=== PATIENT | male | born 1980 | race Caucasian/White ===

== ENCOUNTER 2024-01-12 06:15 | Inpatient (IN) | payer MEDICAID ==
[~2024-01-12] VITALS: Ht 172.7 cm; Wt 81.9 kg
[2024-01-12 13:32] VITALS: BP 120/81; PULSE 80; RESP 16; TEMP 97.9; O2SAT 99
[2024-01-12] MEDS ORDERED: acetaminophen 325mg tablet PO PRN (13:50)
[2024-01-12] MEDS ORDERED: mag hydrox/Alum hydrox/simeth 30ml oral suspension PO PRN (13:50)
[2024-01-12] MEDS ORDERED: loperamide 2mg capsule PO PRN (13:50)
[2024-01-12] MEDS: nicotine 21mg patch - 24 hr TD SCH (14:26)
[2024-01-12] MEDS ORDERED: BUPR-564 PO (14:39)
[2024-01-12] MEDS ORDERED: ZIPR40CA14 PO (14:39)
[2024-01-12] MEDS ORDERED: AMIT-1 PO (14:39)
[2024-01-12] MEDS ORDERED: CETI10TA14 PO (14:39)
[2024-01-12] MEDS ORDERED: LUMA42CA PO (14:39)
[2024-01-12] MEDS ORDERED: FLUO-331 PO (14:39)
[2024-01-12] MEDS ORDERED: QUET300T20 PO (14:39)
[2024-01-12] MEDS ORDERED: GABA300C PO (14:39)
[2024-01-12] MEDS ORDERED: CLON-570 PO (14:39)
[2024-01-12] MEDS ORDERED: LISI10TA27 PO (14:39)
[2024-01-12] MEDS ORDERED: CARB-322 PO (14:39)
[2024-01-12] MEDS ORDERED: SODI1TAB2 PO (14:39)
--- NOTE | 2024-01-12 14:56 | NUR ---
Pt admitted to center for behavioral health today on 5150 for DTS from [facility] today at 1335. 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 No forward thinking, impulsive and risky behaviors. Unable to safety plan. Pt has history of schizophrenia, hyponatremia, HTN, normocytic anemia, migraines.
[2024-01-12 15:00] VITALS: RESP 16; O2SAT 99
[2024-01-12 19:02] VITALS: BP 137/101; PULSE 78; RESP 16; TEMP 97.5; O2SAT 99
[2024-01-12] MEDS: clonazePAM 1mg tablet PO SCH (21:35)
[2024-01-12] MEDS: acetaminophen 325mg tablet PO PRN (21:36)
[2024-01-12] MEDS: cetirizine 10mg tablet PO SCH (21:36)
[2024-01-12] MEDS: ziprasidone 20mg capsule PO SCH (21:37)
[2024-01-12] MEDS: quetiapine 100mg tablet PO SCH (21:39)
[2024-01-12] MEDS: oxcarbazepine 150mg tablet PO SCH (21:39)
--- NOTE | 2024-01-13 00:29 | NUR ---
Nursing Progress Note: Problems: Depression, suicidal thoughts, anxiety Interventions: One to one with the patient and completed the nursing physical assessment. Tylenol given for complaints of chronic back pain. Medication administration and assessment. Assessed for severity of depressive symptoms and self harm risk. He is on q 15 minute safety checks and q 1 hour RN rounding. Reviewed the unit routine with him for the evening shifts. Response: The patient has been up on the unit and has pleasant and cooperative. He stated his mood was "somber, depressed" He stated, "I really really want to be in a 24/7 mental health facility or a prison. "I'm not ssate to be by myself. My meds need to be under lock and simon" He stated that he is suicidal but feels safe here and added, "When I'm in a mental health facility I feel like I'm in my own community" When asked if he has ever been conserved before he replied, "No but eventually I will be and my son will be my conservator" He reported that he felt anxious and irritable. He reports chronic back pain. Plan: Continue plan of care.
[2024-01-13 07:00] VITALS: RESP 14; O2SAT 97
[2024-01-13 07:30] VITALS: BP 126/97; PULSE 95; RESP 14; O2SAT 97
[2024-01-13] MEDS: lisinopril 10 MG tablet PO SCH (07:57)
[2024-01-13] MEDS: BUPROPION HCL 150MG XL 24 HR 150 MG TAB PO SCH (07:58)
[2024-01-13] MEDS: FLUoxetine 10mg capsule PO SCH (07:58)
[2024-01-13 08:00] VITALS: TEMP 97.5
[2024-01-13 11:33] LABS: BASOPHILS # (AUTO) 0.1 X10'3 (0-0.2); BASOPHILS % (AUTO) 0.9 % (0-1); EOSINOPHILS # (AUTO) 0.1 X10'3 (0-0.9); HEMATOCRIT 40.1 % (42.0-52.0); LYMPHOCYTES # (AUTO) 2.2 X10'3 (1.1-4.8); LYMPHOCYTES % (AUTO) 36.4 % (21-51); MEAN CORPUSCULAR HEMOGLOBIN 32.4 PG (27.0-31.0); MEAN CORPUSCULAR HGB CONC 34.8 g/dL (33.0-36.5); MEAN CORPUSCULAR VOLUME 93.1 FL (78-98); MEAN PLATELET VOLUME 9.6 FL (7.4-10.4); MONOCYTES # (AUTO) 0.8 X10'3 (0-0.9); MONOCYTES % (AUTO) 12.5 % (2-12); NEUTROPHILS % (AUTO) 49.2 % (42-75); PLATELET COUNT 209 X10'3 (140-440); RED BLOOD COUNT 4.31 X10'6 (4.70-6.10); RED CELL DISTRIBUTION WIDTH 13.9 % (11.5-14.5); WHITE BLOOD COUNT 6.1 X10'3 (4.5-11.0)
[2024-01-13 12:05] LABS: ALANINE AMINOTRANSFERASE 70 U/L (12-78); ALKALINE PHOSPHATASE 75 IU/L (46-116); ANION GAP 10 (8-16); ASPARTATE AMINO TRANSFERASE 17 U/L (10-37); BILIRUBIN,TOTAL 0.3 MG/DL (0.1-1.0); BLOOD UREA NITROGEN 17 MG/DL (7-18); BUN/CREATININE RATIO 21.3 (10.0-20.0); CALCIUM 9.3 MG/DL (8.5-10.1); CARBAMAZEPINE (TEGRETOL) 3.7 UG/ML (4.0-12.0); CHLORIDE 94 MMOL/L (99-107); CHOL/HDL RATIO 5.4 (0.00-4.99); CHOLESTEROL 228 MG/DL (0-200); GLUCOSE 86 MG/DL (70-104); HDL CHOLESTEROL 42 MG/DL (35-60); LDL CHOLESTEROL 142 MG/DL (50-100); POTASSIUM 4.1 MMOL/L (3.5-5.1); SODIUM 129 MMOL/L (135-145); THYROID STIMULATING HORMONE 1.57 ulU/ml (0.34-4.50); TOTAL CARBON DIOXIDE 25.3 MMOL/L (24-32); TOTAL PROTEIN 7.9 G/DL (6.4-8.2); TRIGLYCERIDES 243 MG/DL (20-135); eCRCL 116 ML/MIN; eGFR > 90 ML/MIN
[2024-01-13 12:08] LABS: BETA HCG,QUANTITATIVE < 1.0 mIU/ml
[2024-01-13 13:16] LABS: HIV ANTIBODY 1&2 RAPID NON-REACTIVE (Neg)
--- NOTE | 2024-01-13 15:48 | NUR ---
Notified MD Echeverria of CMP and toxicology results from today, received verbal orders or Simvastatin 20mg PO daily. Noted and entered.
--- NOTE | 2024-01-13 16:39 | NUR ---
Nursing Progress Note: Zhang Problems: SI, depression, anxiety Interventions: Performed 1:1 nursing assessment, provided medication administration, education, monitoring, active listening/therapeutic communication, Q15 minute rounding. Maintained a safe and supportive environment. Response: Patient is calm and cooperative this shift, he remains compliant with scheduled medication and 1:1 assessment. He reports that he wishes to be , he listed ways he would plan to harm himself, "jump into traffic, OD, go out into the ocean, I'd use the toilet seat to stab into my neck if there was one here." He stated that he has no hope. No self harm behavior to note at this time, it appears that patient wishes to be conserved. He explained, "I want to be in a facility because I don't trust myself." He reported some paranoia related to people dealing drugs in [place] knowing him since he's from [place]. He denies HI and AVH at this time, though he does report severe depression. Patient is active on the unit and appears to interact appropriately with staff/peers. He attended snack/meals in the community room today. Plan: Continue to adjust/titrate medication as necessary and stabilize patient for safe discharge. Addendum: 01/13/24 at 1707 by Rhys Beck RN RN reviewed and agrees with [facility] documentation.
[2024-01-13 19:18] VITALS: BP 126/87; PULSE 87; RESP 20; TEMP 97.8; O2SAT 96
[2024-01-13] MEDS: gabapentin 300mg capsule PO SCH (20:11)
[2024-01-13] MEDS: sodium chloride 1gm tablet PO SCH (20:11)
[2024-01-13] MEDS: clonazePAM 1mg tablet PO PRN (20:11)
[2024-01-13] MEDS: ibuprofen 200mg tablet PO PRN (20:11)
[2024-01-13] MEDS: carBAMazepine Ext. Release 200 MG TAB.ER.12H PO SCH (20:12)
--- NOTE | 2024-01-13 22:38 | NUR ---
Nursing Progress Note: Problems: Depression, suicidal thoughts, anxiety, hyponatremia with NA of 129, Chronic back pain Interventions: One to one with the patient and completed the nursing physical assessment. Tylenol given for complaints of chronic back pain. Medication administration and assessment. Assessed for severity of depressive symptoms and self harm risk. He is on q 15 minute safety checks and q 1 hour RN rounding. Reviewed the unit routine with him for the evening shifts. The patient is on a 900 cc water restriction. Provider made aware that patient preferred Motrin for pain relief and orders received. Response: The patient was up on the unit and in the general patient areas for the majority of the evening. He presented as pleasant and well groomed. When asked how his day went he replied "I woke up pissed at the aids social worker because she told me I had to go back to [facility]" He stated that he wanted to be assigned to a different aids social worker. He stated that he wants to stay in [facility] and get into the housing that his doctor is arranging for him. He verbalized understanding and was compliant with the fluid restriction. He denied medication side effects. He complained of chronic back pain 08/31 and requested/received Motrin. He continues to endorse suicidal thoughts to overdose, step in front of traffic or go into the ocean. He has not had any self injurious behaviors reported or observed. Psychotic symptoms were denied. Plan: Continue plan of care.
[2024-01-14 07:00] VITALS: RESP 12; O2SAT 98
[2024-01-14] MEDS: simvastatin 20mg tablet PO SCH (07:58)
[2024-01-14 08:00] VITALS: BP 122/90; PULSE 72; RESP 12; TEMP 97.1; O2SAT 98
[2024-01-14] MEDS: Lumateperone Tosylate (Caplyta) 42MG CAP PO SCH (08:00)
--- NOTE | 2024-01-14 14:20 | NUR ---
CASE MANAGEMENT Pt has an interview with [employer] today. Eveline Schmitt, BINDERY MACHINE TENDER
--- NOTE | 2024-01-14 17:06 | NUR ---
Nursing Progress Note: Zhang Problems: SI, depression, anxiety, anger issues Interventions: Performed 1:1 nursing assessment, provided medication administration, education, monitoring, active listening/therapeutic communication, Q15 minute rounding. Maintained a safe and supportive environment. Response: Received Pt in bed sleeping w/o distress at shift change. Pt cooperative with vitals and woke for the day and watched TV in Rec. room. Pt pleasant in conversation and talked about wanting to change his medical to [facility] and that he may be getting into the [facility]. Pt took AM meds after reviewing them with him. In mid morning he stated he felt "high" from the medications. He met with Dr Echeverria and he made some changes which are noted in the EMAR. Pt states he doesn't want to go back to drugs "but if I was around them I'd use em". Pt denies HI and AVH's. He reports passive SI with no plan or intent at this time. Pt attended groups today. He became agitated and hit the wall in the afternoon and was able to de-escalate with verbal intervention and taking care of a request he had. Pt later apologized and made a phone call and walked the hallway. Plan: Continue to adjust/titrate medication as necessary and stabilize patient for safe discharge.
[2024-01-14 19:14] VITALS: RESP 16; O2SAT 100
[2024-01-14 19:16] VITALS: BP 134/85; PULSE 76; RESP 16; TEMP 97; O2SAT 100
[2024-01-14] MEDS: carBAMazepine 100mg chewable tablet PO SCH (20:03)
[2024-01-14] MEDS: ziprasidone 20mg capsule PO SCH (20:03)
--- NOTE | 2024-01-15 00:03 | NUR ---
Nursing Progress Note: Problems: Depression, suicidal thoughts, anxiety, hyponatremia with NA of 129, Chronic back pain, right hand pain/swelling Interventions: One to one with the patient and completed the nursing physical assessment. Medication administration and assessment. Assessed for severity of depressive symptoms and self harm risk. He is on q 15 minute safety checks and q 1 hour RN rounding. Reviewed labs and no new labs for today. Right hand examined and the Hospitalist, Dr. Randle was made aware of assessment. Order received for an X ray of the right hand. Tylenol and Motrin given for complaints of mild discomfort. Klonopin given for complaints of anxiety. Response: The patient has been up on the unit and has been more social with peers. He has not had any outbursts. He apologized for his behavior earlier in the day but then added that he was in a psychiatric hospital and could not be expected to act normal. He did complain of mild right hand pain and he did have some minor swelling of the outer hand. He is aware that an x ray will be done in the am. He reported his anxiety was an 8 or 9 out of 10. He continues to endorse suicidal thoughts but states that those thoughts are less today. Psychotic symptoms were denied. He reports sleeping and eating well. He appears well groomed. Plan: Continue plan of care.
[2024-01-15 07:30] VITALS: BP 123/83; PULSE 82; RESP 18; TEMP 97.3; O2SAT 100
[2024-01-15 08:13] LABS: HBSAG SCREEN Negative (Negative); HEP B CORE AB, IGM Negative (Negative); HEP B CORE AB, TOT Negative (Negative); HEPATITIS C VIRUS ANTIBODY Non Reactive (Non Reactive)
--- NOTE | 2024-01-15 09:59 | NUR ---
Initial: Pt admit for suicide attempt, substance abuse, and schizoaffective disorder per EMR. Pt continues on a regular diet with fluctuating intake of ~78% x 8 meals which met ~97% of estimated kcal and 100% of estimated protein needs. LBM on 01/13 and receiving routine bowel care per EMR. Will continue to monitor and make recommendations as appropriate. Recommendations: 1.Continue mechanical soft regular diet 2.[place] food preferences per diet order: Oatmeal with fruit , no tomato sauce 3.Routine bowel care 4.Weekly scaled wts Addendum: 01/15/24 at [address] Amended: Links added.
--- NOTE | 2024-01-15 11:25 | NUR ---
Pt complaining of feeling like he is over medicated and feeling like he just smoked marijuana. Provider was notified and Tegretol was DC'd.
--- NOTE | 2024-01-15 17:25 | NUR ---
Nursing Progress Note: Zhang Problem: SI, agitation, feeling off like he just smoked marijuana Interventions: 1:1 nursing assessment, provide therapeutic communication utilizing active listening, medication education/administration/monitoring, provide regular safety checks, inquire about a plan associated with SI, administer PRN Klonopin, inform provider of pt's complaints of feeling off which resulted in discontinuing his Tegretol Response: Pt was in bed sleeping at the beginning of shift. Pt was cooperative and pleasant all shift and compliant with all of his medications. On assessment pt states he is "okay," and still having "suicidal thoughts" but he does not have a plan anymore. Pt denied AVH/HI. Pt was social on the unit visiting with other pts in the rec room while they watched TV. After morning med pass pt told charge nurse that he felt like he had just smoked marijuana and thought he had taken too many medications. Provider was notified and Tegretol was DC'd. Around that time pt stated he was feeling agitated and requested a PRN Klonopin and it had good effect. Will continue to monitor. Plan: Continue plan of care until pt is stable and safe to discharge.
[2024-01-15 19:08] VITALS: BP 114/81; PULSE 87; RESP 16; TEMP 97; O2SAT 97
--- NOTE | 2024-01-15 23:19 | NUR ---
Nursing Progress Note: Problems: Depression, suicidal thoughts, anxiety, hyponatremia with NA of 129 Interventions: One to one with the patient and completed the nursing physical assessment. Medication administration and assessment. Assessed for severity of depressive symptoms and self harm risk. He is on q 15 minute safety checks and q 1 hour RN rounding. Reviewed labs and no new labs for today. Klonopin given at HS per patient request. Response: The patient has been up on the unit and was social with peers. He again reiterated "mental health is my community and outside of this I'm terrified" He denied pain. He described his mood as "just chill" He has not had any outbursts or periods of agitation. When asked about suicidal thoughts he stated "I always have suicidal thoughts" but stated he had no intent and was not thinking of ways to harm himself. Psychotic symptoms were denied and were not apparent during the evening assessment. He appeared well groomed and stated he had showered earlier in the day. He reports eating and sleeping well. He was medication compliant. He has been cooperative with the unit routine. Plan: Continue plan of care.
[2024-01-16 07:00] VITALS: RESP 16; O2SAT 99
[2024-01-16 07:30] VITALS: BP 137/99; PULSE 78; RESP 16; O2SAT 99
[2024-01-16] MEDS: lurasidone 20mg tablet PO SCH (07:52)
[2024-01-16 14:00] VITALS: TEMP 99.8
--- NOTE | 2024-01-16 17:05 | NUR ---
Nursing Progress Note: Zhang Problems: SI without intent, anxiety, depression Interventions: Performed 1:1 nursing assessment, provided medication administration, education, monitoring, active listening/therapeutic communication, Q15 minute rounding. Maintained a safe and supportive environment. Response: Patient is pleasant and cooperative this shift, he remains compliant with scheduled medication and 1:1 assessment. He reports that he "always" experiences suicidal thoughts, but he admits improvement because he "doesn't have a plan." He stated that he is "always paranoid." Patient does present with some anxiety/agitation in regard to room mate, "seems mean, we could square up." Room change performed, he appears happy. He is accepting of 900ml fluid restriction. Patient is active on the unit, he attended snack/meals in the community room. He's noted up in the rec room majority of the day. Plan: Requires interruption of current crisis in a safe and therapeutic environment with possible medication adjustments. Addendum: 01/16/24 at 1744 by Natalia Sharma RN RN ENDOSCOPY documentation: I have reviewed and agree with all interventions, assessments performed and documented by JEFRY Prado. Addendum: 01/16/24 at 1808 by Eve Davison - JEFRY CAPPS Patient approached this flex o writer operator shaking and requested a PRN. He stated that a staff member was not polite about his peers sharing food. He reports that it triggered him and he would like to be in the seclusion room before he "loses it." Door unlocked, patient requested head phones. He was in seclusion room by choice for a couple of minutes. Reassessed patient a few minutes later and he appeared calm, he thanked this LN for allowing him the quiet area, "I prayed and am listening to [place] music, I'm better."
[2024-01-16 19:35] VITALS: BP 127/97; PULSE 93; RESP 18; TEMP 97.1; O2SAT 96
--- NOTE | 2024-01-16 23:31 | NUR ---
Nursing Progress Note: Problems: Depression, suicidal thoughts, anxiety, back pain Interventions: One to one with the patient and completed the nursing physical assessment. Medication administration and assessment. Assessed for severity of depressive symptoms and self harm risk. He is on q 15 minute safety checks and q 1 hour RN rounding. Motrin given at HS for back pain Response: The patient has been up on the unit and social with peers. At the change of shift he became agitated with a staff member because he felt the staff members tone was harsh. He asked for his klonopin and during change of shift he asked to sit in the quiet room. He stated that at the time of the evening assessment his anxiety had decreased. He was asked about suicidal thoughts and he stated that "its really not bad" He stated that having suicidal thoughts was at his baseline but he was not planning to act on those thoughts. He complained of back pain 4/10 and motrin was given at snack time and he appears to sleeping at this time He is medication compliant and he denies medication side effects. Plan: Continue plan of care.
[2024-01-17 07:00] VITALS: RESP 14; O2SAT 97
[2024-01-17 07:20] VITALS: BP 127/77; PULSE 76; RESP 14; TEMP 98.4; O2SAT 97
[2024-01-17] MEDS: aripiprazole 10MG tablet PO SCH (07:48)
--- NOTE | 2024-01-17 12:39 | NUR ---
Nutrition consult re: "Pt/family education". Per diet order comment "pt has many food dislikes/preferences" though pt continues on a regular diet with great appetite of mostly 100% intake. Per MD progress note pt requesting Gatorade on regular based to avoid low sodium levels and explained in great details that we do not have Gatorade available and is not needed since serum Na is now WNL. Pt still insistent on Gatorade or a nutrition consult per MD note. RD left a message for RN in regarding regular diet providing ~2400mg of Na. Noted pt is receiving NaCL tabs. Encouraged RN and pt to reach out to dietitians office for any nutrition questions or concerns. Will continue to monitor and make recommendations as appropriate. Addendum: 01/17/24 at [address] Amended: Links added.
--- NOTE | 2024-01-17 14:04 | NUR ---
5250 [address]HELD ANNEMARIE Yepez
--- NOTE | 2024-01-17 15:41 | NUR ---
Nursing Progress Note: Problems: Anxiety, irritability, passive SI Interventions: 1:1 assessment, therapeutic conversation, active listening, ensured contract for safety, medication administration/education/monitoring, fluid restriction, provided distraction, redirection, reality orientation, verbal de-escalation, and Q15 minute safety checks. Response: Patient was up before breakfast. Pt is hyperverbal, pt is paranoid at times, pt is easily frustrated, pt makes many requests throughout the day especially regarding his diet. Order obtained for a dietary consult. Pt approached this nurse before breakfast to complain of a headache and sinus congestion. Pt believes he needs a Covid test. Pt goes on to say that he knows everyone here has been tested and he doesn't think anyone here has it. Encouraged pt to discuss this with the doctor. Pt's VS were stable; pt is afebrile, lungs clear, no cough noted. Pt was cooperative with his morning medications. Pt refused PRN ibuprofen for his c/o mild headache earlier. Pt reported that his headache was going away. No further complaints of headache or sinus congestion throughout the day. Pt has some mild to moderate intermittent agitation. Pt asked for something for anxiety mid morning. Pt stated, "I'm stressed, I want to get out of this place today or tomorrow." Pt was given PRN Klonopin 1 mg at 1039 with good effect. Pt needs redirection, and some verbal de-escalation intermittently throughout the day. Pt is redirectable and usually apologetic for his behavior. Pt attended group. Pt rated his depression today at a 5/10. He admitted to some passive SI though indicates that this is his baseline and that his depression has gotten better. Pt had a hearing today and his 5250 was upheld. Pt plans to go to rehab here in [place]. He wishes to remain in [place]. Pt requested to speak with his social service agency director about transferring his Medi-arline to [facility]. Pt doesn't understand why his 5250 only lists him as DTS. Pt believes he is Gravely disabled because he is homeless and lacks resources. Plan: Pt needs continued medication adjustment and monitoring in a safe and therapeutic environment until a viable discharge plan formulated. Continue with behavior monitoring and intervention as needed.
[2024-01-17 19:00] VITALS: BP 121/74; PULSE 65; RESP 18; TEMP 97.6; O2SAT 99
[2024-01-17 19:10] VITALS: RESP 18; O2SAT 99
--- NOTE | 2024-01-18 02:20 | NUR ---
Nursing Progress Note: Zhang Problems: Anxiety, irritability, passive SI Interventions: 1:1 assessment, therapeutic conversation, active listening, ensured contract for safety, medication administration/education/monitoring, fluid restriction, provided distraction, redirection, reality orientation, verbal de-escalation, and Q15 minute safety checks. Response: Received report from AM shift nurse, assumed care. Pt in bed with eyes closed, even respirations, no s/s of distress. Pt pleasant, cooperative and compliant with medication this shift. Pt denies all MH symptoms at this time. Pt participated in snack and socializing with peers in community room most of the shift. Pt observed in good spirits. will continue to monitor. Plan: Pt needs continued medication adjustment and monitoring in a safe and therapeutic environment until a viable discharge plan formulated. Continue with behavior monitoring and intervention as needed. Addendum: 01/18/24 at 0648 by Sharri Tapia RN I have reviewed the MAC ARTIST note. Sharri Tapia RN
[2024-01-18 07:00] VITALS: RESP 18; O2SAT 97
[2024-01-18] MEDS: atomoxetine 40 MG capsule PO SCH (07:14)
[2024-01-18 08:00] VITALS: BP 127/91; PULSE 81; RESP 18; TEMP 97.1; O2SAT 97
--- NOTE | 2024-01-18 15:24 | NUR ---
Nursing Progress Note: Zhang Problems: SI, depression, anxiety, anger issues Interventions: Performed 1:1 nursing assessment, provided medication administration, education, monitoring, active listening/therapeutic communication, Q15 minute rounding. Maintained a safe and supportive environment. Response: Received Pt in bed sleeping at change of shift. He woke early and showered early. Pt cooperative and enjoys talking with staff and others. His vitals were WNL and he took scheduled meds throughout the day w/o issue. He ate meals and snacks well. Pt watched TV went to group and socialized well with others. He denies SI with intent/HI/AH and VH at this time. Pt was irritated at a staff member in the morning but did not have any outbursts of anger or need PRN meds as of the writing of this note. Pt enjoys talking with an older Pt on unit. He napped for short periods today. He remains hopeful to get into [facility] and find housing. Will continue to monitor. Plan: Continue to adjust/titrate medication as necessary and stabilize patient for safe discharge.
[2024-01-18 19:00] VITALS: BP 125/91; PULSE 89; RESP 18; TEMP 96.5; O2SAT 97; O2SAT 98
[2024-01-18] MEDS: clonazePAM 1mg tablet PO SCH (20:24)
--- NOTE | 2024-01-19 02:14 | NUR ---
Nursing Progress Note: Problems: Passive SI, anxiety, self isolative Interventions: 1:1 assessment, therapeutic conversation, active listening, ensured contract for safety, medication administration/education/monitoring, fluid restriction, provided distraction, redirection, reality orientation, verbal de-escalation, and Q15 minute safety checks. Response: Patient pleasant and cooperative this shift; compliant with medication. Scheduled Clonazepam started this shift; no ASE noted. Nicotine patch removed. Patient reported frequent intrusive thoughts of not wanting to live but refused having a plan and does not feel the need to act on the negative thoughts. Patient denied A/VH; no apparent delusions expressed. Patient retired to bed early and did not participate in HS snack; observed sleeping and does not appear to be having difficulty. Plan: Pt needs continued medication adjustment and monitoring in a safe and therapeutic environment until a viable discharge plan formulated. Continue with behavior monitoring and intervention as needed. Addendum: 01/19/24 at 0315 by Renee Stone RN The above documentation by the assigned SURG TECH was reviewed
[2024-01-19 07:30] VITALS: BP 129/93; PULSE 82; RESP 20; TEMP 96.5; O2SAT 98
--- NOTE | 2024-01-19 17:25 | NUR ---
Nursing Progress Note: Zhang Problems: SI, depression. Interventions: Performed 1:1 nursing assessment, provided medication administration, education, monitoring, active listening/therapeutic communication, Q15 minute rounding. Maintained a safe and supportive environment. Response: RN received pt. awake and pacing collazo at change of shift. Pt. took AM medication and observed watching TV in Rec Room. 1:1 done at bedside, pt. denies HI, A/V hallucinations. Pt. reports SI without a plan. Pt. reports feeling hopeful about his future in purusing further treatment at [facility]. Pt. participated in groups. Plan: Continue to adjust/titrate medication as necessary and stabilize patient for safe discharge.
[2024-01-19 20:00] VITALS: BP 132/90; PULSE 85; RESP 14; TEMP 98.4; O2SAT 100
--- NOTE | 2024-01-20 03:33 | NUR ---
Nursing Progress Note: Problems: Passive SI Interventions: 1:1 assessment, therapeutic conversation, active listening, ensured contract for safety, medication administration/education/monitoring, fluid restriction, provided distraction, redirection, reality orientation, verbal de-escalation, and Q15 minute safety checks. Response: Patient pleasant and cooperative; compliant with medication. Nicotine patch removed. Denied HI, A/VH and endorsed suicidal thoughts without plan to act on; no apparent delusions expressed. Patient was social with peers, playing board games and participated in HS snack prior to bed; observed sleeping and does not appear to be having difficulty. Plan: Pt needs continued medication adjustment and monitoring in a safe and therapeutic environment until a viable discharge plan formulated. Continue with behavior monitoring and intervention as needed.
--- NOTE | 2024-01-20 03:40 | NUR ---
Reviewed the nurses' patient assessment and documentation
[2024-01-20 07:00] VITALS: RESP 14; O2SAT 100
[2024-01-20 08:00] VITALS: BP 132/90; PULSE 85; RESP 14; TEMP 98.4; O2SAT 100
[2024-01-20] MEDS: atorvastatin 20mg tablet PO SCH (08:01)
[2024-01-20 09:11] LABS: ALBUMIN 3.8 G/DL (3.4-5.0); ANION GAP 6 (8-16); BLOOD UREA NITROGEN 10 MG/DL (7-18); BUN/CREATININE RATIO 11.9 (10.0-20.0); CALCIUM 8.8 MG/DL (8.5-10.1); CHLORIDE 94 MMOL/L (99-107); CREATININE 0.84 MG/DL (0.60-1.10); GLUCOSE 113 MG/DL (70-104); POTASSIUM 4.2 MMOL/L (3.5-5.1); SODIUM 129 MMOL/L (135-145); TOTAL CARBON DIOXIDE 29.3 MMOL/L (24-32); eCRCL 111 ML/MIN; eGFR > 90 ML/MIN
[2024-01-20] MEDS: NICOTINE POLACRILEX 2 MG LOZENGE BC PRN (10:36)
--- NOTE | 2024-01-20 16:59 | NUR ---
Nursing Progress Note: Zhang Problems: SI, depression Interventions: Performed 1:1 nursing assessment, provided medication administration, education, monitoring, active listening/therapeutic communication, Q15 minute rounding. Maintained a safe and supportive environment. Response: Received Pt in bed sleeping at change of shift. Zhang woke early and walked halls listening to music. He was cooperative with AM vitals which were WNL. He ate breakfast, lunch and snacks well and was in a pleasant and cooperative mood. He likes to talk and socialize and attended group this morning. Pt took scheduled meds w/o issue and used nicotine lozenges. He received Klonopin for anxiety, "theres a lot going on and i get worked up". Pt had good effect from PRN for anxiety. We discussed ways to not absorb the anxiety around him and he was grateful. Pt denies AVH's, HI and has passive SI at times with no intent. Discharge and housing plans are still unknown per Pt, , but he remains hopeful. He had no incidents of angry outbursts this shift. Will continue to monitor. Plan: Continue to adjust/titrate medication as necessary and stabilize patient for safe discharge.
[2024-01-20 19:50] VITALS: BP 118/77; PULSE 75; RESP 14; TEMP 98.7; O2SAT 98
[2024-01-20 20:00] VITALS: RESP 14; O2SAT 98
--- NOTE | 2024-01-21 02:09 | NUR ---
Nursing Progress Note: Problems: Self isolative Interventions: 1:1 assessment, therapeutic conversation, active listening, ensured contract for safety, medication administration/education/monitoring, fluid restriction, provided distraction, redirection, reality orientation, verbal de-escalation, and Q15 minute safety checks. Response: Patient was pleasant and cooperative with care; compliant with medication. Nicotine patch removed. He denied SI, HI, A/VH this shift and no apparent delusions expressed. Patient appear to be more isolative this shift than previously but continues to express needs to staff and participated in HS snack. He retired to bed early this shift and does not appear to be having difficulty. As of 01/20/24, decreased Na+ (129); patient remains on PO sodium chloride. Plan: Per provider's note, [facility] upon stabilization. Addendum: 01/21/24 at 0241 by Renee Stone RN Documentation by assigned NATURALIST was reviewed
[2024-01-21 07:00] VITALS: RESP 16; O2SAT 100
[2024-01-21 07:30] VITALS: BP 141/100; PULSE 81; RESP 16; TEMP 97.4; O2SAT 100
[2024-01-21] MEDS: atomoxetine 40 MG capsule PO SCH (07:55)
[2024-01-21 09:15] VITALS: BP 128/81; PULSE 93
--- NOTE | 2024-01-21 14:49 | NUR ---
Nursing Progress Note: Zhang Problems: Agitation at beginning of shift, hypertension, anxiety Interventions: Performed 1:1 nursing assessment, provided medication administration, education, monitoring, active listening/therapeutic communication, Q15 minute rounding. Maintained a safe and supportive environment. Response: Patient is pleasant and cooperative this shift, he remains compliant with scheduled medication and 1:1 assessment. He reports that he "always has thoughts of suicide" but he does not have intent nor does he wish to be . Experiencing 3/10 depression, 8/10 anxiety. 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 Patient states that being an empath "brings paranoia." He appeared calm and social after receiving scheduled medication. Patient expressed that his current medication regimen "feels good" and that he is excited to attend [facility]. He is active on the unit, he attended group and meals in the community room. He showered and shaved without prompting. Initial BP noted 141/100, patient denied changes in vision, dizziness, headache, nausea/vomiting, and chest pain. Remains asymptomatic. 128/81 after scheduled medication He continues with 900ml fluid restriction, patient is cooperative. Plan: Requires interruption of current crisis in a safe and therapeutic environment with possible medication adjustments. Addendum: 01/21/24 at 1547 by Moshe Garcia) RN PRESCHOOL PROGRAM DIRECTOR documentation: I have reviewed and agree with all interventions, assessments performed and documented by Eve CAPPS.
--- NOTE | 2024-01-21 15:22 | NUR ---
Reassessment: Per EMR pt with average 50% PO intake of lunch today with refusal of dinner last night however pt continues meeting estimated nutrient needs with mostly 100% PO intake of meals. LBM 01/19 per EMR. No nutrition intervention implemented at this time. Will continue to follow and make recommendations as appropriate. Recommendations: 1. Continue mechanical soft regular diet 2. Troy food preferences per diet order: Oatmeal with fruit, no tomato sauce 3. Routine bowel care 4. Weekly scaled wts Addendum: 01/21/24 at [address] Amended: Links added.
[2024-01-21] MEDS: LIDOcaine 5% patch TP SCH (17:17)
[2024-01-21 19:00] VITALS: RESP 18; O2SAT 98
[2024-01-21 19:40] VITALS: BP 125/90; PULSE 96; RESP 22; TEMP 97.8; O2SAT 98
--- NOTE | 2024-01-22 02:50 | NUR ---
Nursing Progress Note: Zhang Problems: passive SI, headache Interventions: Performed 1:1 nursing assessment, provided medication administration, education, monitoring, active listening/therapeutic communication, Q15 minute rounding, hourly nurse rounds. Maintained a safe and supportive environment. PRN ibuprofen administered Response: pt. pleasant and cooperative. Pt. received out of room watching TV in the community room with peers. Pt. reports 6/10 headache ; PRN ibuprofen provided with relief. When asked about SI he denies stating " no, but its a thought I have". He denies HI/AH/VH anxiety and depression "i'm feeling good today". Pt. is active on the unit, socializing with peers and out of his room this evening. Participated in evening snack. Pt. reports that he is leaving [facility]. Nicotine and lidoderm patch removed prior to bed. Medication compliant. Plan: continue plan of care. Addendum: 01/22/24 at 0324 by Renee Stone RN Documentation by assigned SUPERVISOR POWER REACTOR reviewed
[2024-01-22 07:13] LABS: ALANINE AMINOTRANSFERASE 38 U/L (12-78); ALBUMIN 3.9 G/DL (3.4-5.0); ALBUMIN/GLOBULIN RATIO 1.1 (1.1-1.5); ALKALINE PHOSPHATASE 64 IU/L (46-116); ANION GAP 8 (8-16); ASPARTATE AMINO TRANSFERASE 23 U/L (10-37); BILIRUBIN,TOTAL 0.3 MG/DL (0.1-1.0); BLOOD UREA NITROGEN 11 MG/DL (7-18); BUN/CREATININE RATIO 14.9 (10.0-20.0); CALCIUM 8.9 MG/DL (8.5-10.1); CHLORIDE 96 MMOL/L (99-107); CREATININE 0.74 MG/DL (0.60-1.10); GLUCOSE 89 MG/DL (70-104); POTASSIUM 4.4 MMOL/L (3.5-5.1); SODIUM 130 MMOL/L (135-145); TOTAL CARBON DIOXIDE 25.6 MMOL/L (24-32); TOTAL PROTEIN 7.4 G/DL (6.4-8.2); eCRCL 126 ML/MIN; eGFR > 90 ML/MIN
[2024-01-22 07:30] VITALS: BP 131/81; PULSE 82; RESP 16; TEMP 96.9; O2SAT 97
[2024-01-22 08:07] LABS: OSMOLALITY 265 MOSM/K (280-300)
--- NOTE | 2024-01-22 17:34 | NUR ---
Nursing Progress Note: Zhang Problems: Anxiety, body aches, and fatigue. Interventions: Performed 1:1 nursing assessment, provided medication administration, education, monitoring, active listening/therapeutic communication, Q15 minute rounding. Maintained a safe and supportive environment. Maintain fluid restriction. COVID BINAX test. Response: RN received pt. awake and pacing collazo at start of shift. Pt. took all medications and showered. Pt. ate breakfast in dining room. 1:1 done at bedside. Pt. watching TV in Rec Room with peers. 1:1 done at bedside, pt. endorses passive SI. Sttates that he has no plan. Pt. denies HI, A/V hallucinations. Pt. observed pacing hallway and talking on phone. In the afternoon pt. c/o anxiety and received Klonopin 1mg with good effect. Pt. c/o fatigue and body aches, Pt. tested for COVID. He continues with 900ml fluid restriction, patient is cooperative. Plan: Requires interruption of current crisis in a safe and therapeutic environment.
[2024-01-22 19:00] VITALS: BP 128/84; PULSE 95; RESP 12; RESP 16; TEMP 97.3; O2SAT 98
[2024-01-22] MEDS: docusate sod 100mg capsule PO SCH (20:45)
--- NOTE | 2024-01-23 01:17 | NUR ---
Nursing Progress Note: Zhang Problems: passive SI, anxiety Interventions: Performed 1:1 nursing assessment, provided medication administration, education, monitoring, active listening/therapeutic communication, Q15 minute rounding. Maintained a safe and supportive environment. Maintain fluid restriction 900ml.LAMIN thomas Response: Pt. received watching TV in rec room with peers . Pt. pleasant and cooperative. Pt. continues to endorse passive SI without a plan. He denies HI/AH/VH. Pt is medication compliant. Pt. participates in evening snack in the community room and socializes. He watched TV until ready for bed. Lidocaine and nicotine patches removed . Observed and appears sleeping without difficulty Plan: continue plan of care. Addendum: 01/23/24 at 0537 by Sharri Tapia RN I have reviewed the BOILER FIREMAN note. Sharri Tapia RN
--- NOTE | 2024-01-23 05:35 | NUR ---
I have reviewed the GRANULATOR TENDER note. Sharri Tapia RN
[2024-01-23 07:30] VITALS: BP 130/90; PULSE 73; RESP 16; TEMP 97.3; O2SAT 100
[2024-01-23] MEDS: magnesium hydroxide 30ml (MOM) UD suspension PO PRN (08:06)
--- NOTE | 2024-01-23 14:35 | NUR ---
Nursing progress note: Problem: Passive SI Interventions: Q15min rounding; Q RN rounding; Medication evaluation; administration and monitoring; Active listening and therapeutic communication; maintained a safe and supportive environment; provided clear and simple instructions; open-ended questions; PRN Nicotine Lozenges, PRN M.O.M, Free water restriction of 900 ml Response: Upon turn of shift noted patient to be awake and walking halls. Appears to be in a good mood. "It's there all the time." Reports having passive SI but has no intent or plan on carrying it out. Denies HI, AH or VH. Compliant with meds. PRN Milk of Magnesia for constipation. Applied Lidoderm & nicotine patches. Compliant with 900 ml fluid restriction. Participated in [employer] held in dining room. This afternoon noted walking with female cohort. Noted patient be very attentive to the needs of struggling his cohort. Will continue to monitor. Plan: Stabilize and treat. Addendum: 01/23/24 at 1559 by Danielle Ramos RN Patient requested Klonopin r/t a female patient reporting that she has scabies. Patient c/o itching. Checked patient skin, no skin issues and no bugs seen.
[2024-01-23] MEDS ORDERED: DOCU100C40 PO (18:28)
[2024-01-23] MEDS ORDERED: QUET300T20 PO (18:28)
[2024-01-23] MEDS ORDERED: SODI1TAB2 PO (18:28)
[2024-01-23] MEDS ORDERED: FLUO-81 PO (18:28)
[2024-01-23] MEDS ORDERED: ATOR20TA66 PO (18:28)
[2024-01-23] MEDS ORDERED: gabapentin capsule PO (18:28)
[2024-01-23] MEDS ORDERED: NICO-907 BC (18:28)
[2024-01-23] MEDS ORDERED: CLON1TAB12 PO (18:28)
[2024-01-23] MEDS ORDERED: NICO-687 TD (18:28)
[2024-01-23] MEDS ORDERED: ATOM80CA3 PO (18:28)
[2024-01-23] MEDS ORDERED: LISI10TA27 PO (18:28)
[2024-01-23] MEDS ORDERED: ARIP10TA57 PO (18:28)
[2024-01-23] MEDS ORDERED: OXCA300T16 PO (18:28)
[2024-01-23] MEDS ORDERED: CETI10TA14 PO (18:28)
[2024-01-23] MEDS ORDERED: BUPR-564 PO (18:28)
[2024-01-23] MEDS ORDERED: ZIPR40CA14 PO (18:28)
[2024-01-23 19:00] VITALS: RESP 16; O2SAT 99
[2024-01-23 19:39] VITALS: BP 135/93; PULSE 83; RESP 16; TEMP 96.9; O2SAT 99
--- NOTE | 2024-01-24 04:15 | NUR ---
Nursing Progress Note: Problems: Anxiety, Low Na+ Interventions: 1:1 assessment, therapeutic conversation, active listening, ensured contract for safety, medication administration/education/monitoring, fluid restriction, provided distraction, redirection, reality orientation, verbal de-escalation, and Q15 minute safety checks. Response: Patient is pleasant and cooperative with care; compliant with medication. PRN Clonazepam provided for c/o anxiety. Nicotine patch removed. He denied SI, HI, A/VH; no apparent delusions expressed. Patient presented in an up beat mood this shift; social with peers and watching TV in SA. He participated in HS snack prior to bed; observed sleeping and does not appear to be having difficulty. As of 01/22/24, decreased Na+ (130); patient remains on PO sodium chloride and free water restriction 900mL. Plan: Per provider's note, [facility] stabilization.
--- NOTE | 2024-01-24 04:26 | NUR ---
Agree with above charted assessment per BAKERY WORKER, will continue with careplan.
[2024-01-24 07:00] VITALS: BP 115/83; PULSE 90; RESP 16; TEMP 97.4; O2SAT 92
[2024-01-24 07:59] VITALS: RESP 16; O2SAT 92
--- NOTE | 2024-01-24 15:19 | NUR ---
Nursing progress note: Problem: Hyponatremia, passive SI, anxiety Interventions: Q15min rounding; QH RN rounding; Medication evaluation; administration and monitoring; Active listening and therapeutic communication; maintained a safe and supportive environment; provided clear and simple instructions; open-ended questions; PRN Klonopin, Free water restriction of 900 ml Response: Upon turn of shift noted patient to be awake and walking halls. Denies all mental health s/sx. Showered before breakfast. Compliant with meds. PRN Klonopin given for anxiety with success. Came to nurse after a nap and said thank you. Pleasant/calm and cooperative this shift. Lidoderm patch secured to back. Walking halls and socializing appropriately with cohort and staff. Sees the needs of the patient's and often will offer help or ask the staff for help. Passive SI with no real intent on self-harm. Denies HI, AH or VH. Will continue to monitor. Plan: Stabilize and treat.
[2024-01-24 19:28] VITALS: BP 128/72; PULSE 83; RESP 16; TEMP 97.8; O2SAT 99
[2024-01-24 20:00] VITALS: RESP 16; O2SAT 99
--- NOTE | 2024-01-25 00:56 | NUR ---
Nursing progress note: Problem: Hyponatremia, passive SI Interventions: 1:1 assessment, therapeutic conversation, active listening, ensured contract for safety, medication administration/education/monitoring, fluid restriction, and Q15 minute safety checks. Response: Patient is pleasant and cooperative with care; compliant with medication. Nicotine patch removed. Patient denied HI, A/VH; expressed SI without intent to act on it. No apparent delusions expressed. Patient was social with peers and participated in HS snack prior to bed; observed sleeping and does not appear to be having difficulty. As of 01/22/24 Na+ low (130); patient remains on salt tabs and free water restriction of 900ml. Plan: Plan to discharge 01/25/24; meds need to be delivered from [place].
--- NOTE | 2024-01-25 04:18 | NUR ---
Agree with above charted assessment per INCREMENT MANAGER, will continue with careplan.
[2024-01-25 07:04] VITALS: BP 147/96; PULSE 85; RESP 19; TEMP 98; O2SAT 99
[2024-01-25 07:35] VITALS: RESP 19; O2SAT 99
--- NOTE | 2024-01-25 14:44 | NUR ---
CASE MANAGEMENT PT has been accepted to [facility]. His medications will not arrive from [facility] until tomorrow after 11am therefore he cannot be discharged there until . They need him to come earlier then 11am Eveline Schmitt LCSW
--- NOTE | 2024-01-25 15:41 | NUR ---
Nursing progress note: Problem: Passive SI, possible parasites Interventions: Q15min rounding; QH RN rounding; Medication evaluation; administration and monitoring; Active listening and therapeutic communication; maintained a safe and supportive environment; provided clear and simple instructions; open-ended questions; Free water restriction of 900 ml; PRN Klonopin; ordered Stool sample for Ovum & Parasites Response: Upon turn of shift noted patient to be awake and walking halls. x ray service engineer patient was looking at the sunrise with 2 of his cohort in rec room. Reports that he's doing well. For discharge we are waiting for his medications from [facility] to be dropped off. Compliant with meds. Patient reports, "I have been walking for 2 hours before breakfast and I tried using deep breathing exercises." He requested a Klonopin. PRN Klonopin given after breakfast with success. Pleasant, calm and cooperrative this shift. Seen socializing with cohort out in milieu. Eager for discharge today. Passive SI continues however has no intent on actually harming himself. No plan to self harm. Denies HI, or . Later this afternoon patient came to RN with concerns that he has parasites in his stool. Contacted Dr. Echeverria and received orders for an ovum and parasite. Pending stool sample. Will continue to monitor. Plan: PT has been accepted to [facility]. His medications will not arrive from [facility] until tomorrow after 11am therefore he cannot be discharged there until . They need him to come earlier then 11am Addendum: 01/25/24 at 1627 by Danielle Ramos RN Had 420 ml free water. Will make no shift aware. Addendum: 01/25/24 at 1721 by Danielle Ramos RN Administered M.O.M per patient request
[2024-01-25 20:00] VITALS: BP 120/80; PULSE 81; RESP 16; TEMP 97.4; O2SAT 96
--- NOTE | 2024-01-26 02:02 | NUR ---
Nursing progress note: Problem: Hyponatremia, passive SI Interventions: 1:1 assessment, therapeutic conversation, active listening, ensured contract for safety, medication administration/education/monitoring, fluid restriction, and Q15 minute safety checks. Response: Patient is pleasant and cooperative; compliant with medication. PRN Motrin provided for mid back pain. Nicotine patch removed. Patient denied HI, A/VH; continues to express passive SI without intent to act. No apparent delusions expressed. Obtained stool sample for parasite testing. Patient appears happy with his discharge plan for 01/26/24. Patient social with peers, participated in HS snack and showered prior to bed; observed sleeping and does not appear to be having difficulty. As of 01/22/24 Na+ low (130); patient remains on salt tabs and free water restriction of 900ml. Plan: Plan to discharge 01/26/24; meds need to be delivered from [facility].
--- NOTE | 2024-01-26 05:17 | NUR ---
Agree with above charted assessment per TELEPHONE MAINTAINER, will continue with careplan.
[2024-01-26 07:30] VITALS: BP 123/87; PULSE 74; RESP 16; TEMP 97.8; O2SAT 100
[2024-01-26] MEDS: acetaminophen 325mg tablet PO PRN (10:20)
--- NOTE | 2024-01-26 17:24 | NUR ---
Nursing progress note: Zhang Problem: Passive SI, agitation and anxiety Interventions: Q15min rounding; QH RN rounding; Medication evaluation; administration and monitoring; Active listening and therapeutic communication; maintained a safe and supportive environment; provided clear and simple instructions; open-ended questions; Free water restriction of 900 ml Response: RN received pt. awake and pacing halls at change of shift. Pt. took all medications and ate breakfast in the dining room. 1:1 done at bedside, pt. denies HI, A/V hallucinatinos, pt. reports the he has passive SI, but that he has not plan nor intent. Pt. reports feeling good about discharging today. Pt. informed that he would not be discharging today because his medications would not arrive in time, pt. was annoyed but asked for a Klonopin and received 1mg with good effect. While shooting hoops on the patio pt. reports that he hit his left side on the concrete wall. Pt. examined and had no visible markings on his side. Pt. given PRN analgesics for 9/10 rib pain with good effect. Pt.'s left ribs x-rayed an showed no accute fracture or disolcation. In the afternoon pt. reports feeling increased agitation and anxiety, states, "I'm just getting easily agitated wtih people". Pt. given Klonopin 1mg with good effect. Plan: PT has been accepted to [facility]. Pt. discharge set for 01/26
[2024-01-26 19:00] VITALS: RESP 16; O2SAT 99
[2024-01-26 19:38] VITALS: BP 124/79; PULSE 83; RESP 16; TEMP 98.1; O2SAT 99
--- NOTE | 2024-01-27 01:41 | NUR ---
Nursing progress note: Zhang Problem: Passive SI, hyponatremia Interventions: Q15min rounding; nurse rounding; Medication evaluation; administration and monitoring; Active listening and therapeutic communication; maintained a safe and supportive environment; provided clear and simple instructions; open-ended questions; Free water restriction of 900 ml Response: pt. received resting in bed at change of shift. Pt. out of room and noted sitting in the community room playing chess with a peer. Pt. is social with staff and peers. Pt. is pleasant and cooperative. Medication compliant. Pt. showered this evening. Pt. denies HI/hallucinations. Passive SI without a plan. He endorses anxiety and a "little" depression. Participated in evening snack. Observed and appears sleeping without difficulty. Plan: PT has been accepted to [facility]. Pt. discharge set for 01/26 Addendum: 01/27/24 at 0242 by Sharri Tapia RN I have reviewed the JEFRY note. Sharri Tapia RN Addendum: 01/27/24 at 0502 by Leni Mayo LVN pt reporting 12/31 anxiety relating to discharge. LAMIN lerma provided to pt.
[2024-01-27 07:30] VITALS: BP 121/88; PULSE 79; RESP 16; TEMP 96.8; O2SAT 100
--- NOTE | 2024-01-27 09:30 | NUR ---
DISCHARGE NOTE: Pt. discharged to [facility]. Pt. walked their by staff. Pt. discharged with all belongings and valuables. RN went over discharge paperwork, pt. verbalized understanding of and signed all discharge paperwork including firearms restriction, emergency phone numbers including 911, discharge medications and f/u appointments. Pt. continues to report passive SI without a plan. Pt. denies HI, A/V hallucinations.
== END 2024-01-27 09:30 | disposition home or self-care (01) | DRG 750 ==
LOC: ADULT MH 06:15 → UNDOADMIN 13:33 → ADULT MH 01-16 01:03
PROVIDERS: ADMIT Psychiatry & Neurology Psychiatry; ATTEND Psychiatry & Neurology Psychiatry
PROC: GZHZZZZ Group Psychotherapy (ICD-10-PCS; principal; 2024-01-21)
PROC: GZ51ZZZ Individual Psychotherapy, Behavioral (ICD-10-PCS; 2024-01-21)
DX: F25.0 Schizoaffective disorder, bipolar type (principal); R45.851 Suicidal ideations; E87.1 Hypo-osmolality and hyponatremia; F10.10 Alcohol abuse, uncomplicated; F19.10 Other psychoactive substance abuse, uncomplicated; Z20.822 Contact with and (suspected) exposure to COVID-19; F90.0 Attention-deficit hyperactivity disorder, predominantly inattentive type; I10 Essential (primary) hypertension; F41.9 Anxiety disorder, unspecified; M25.511 Pain in right shoulder; F17.290 Nicotine dependence, other tobacco product, uncomplicated; F15.10 Other stimulant abuse, uncomplicated; G43.909 Migraine, unspecified, not intractable, without status migrainosus; Z82.49 Family history of ischemic heart disease and other diseases of the circulatory system; Z88.5 Allergy status to narcotic agent; Z88.8 Allergy status to other drugs, medicaments and biological substances; Z79.899 Other long term (current) drug therapy
CPT/HCPCS: 36415; 71100; 73030; 73130; 80048; 80053; 80061; 80156; 83036; 83930; 83935; 84295; 84300; 84443; 84702; 85025; 86703; 86704; 86705; 86803; 87081; 87177; 87209; 87340; 87522; 87811; A6250; A6258